=== PATIENT | female | born 1955 | race Caucasian/White ===

== ENCOUNTER 2017-06-20 16:25 | Emergency (ER) | payer OTHER ==
[~2017-06-20] VITALS: Ht 144.8 cm; Wt 62.0 kg
[~2017-06-20 16:25] MED LIST: ATV/1 PO; LAMO100T PO; ZIPR1CAP4 PO
[2017-06-20 16:30] VITALS: TEMP 36.6; Ht 144.8 cm; Wt 62.0 kg
--- NOTE | 2017-06-20 17:23 | DIAGNOSTIC IMAGING REPORT ---
CHEST ONE VIEW PORTABLE HISTORY: 61 years-old Female EVALUATE ALTERED MENTAL STATUS/WEAKNESS acute altered mental status with weakness COMPARISON: None available TECHNIQUE: Portable upright AP view of the chest FINDINGS: Cardiomediastinal and hilar silhouettes are within normal limits. There is no pneumothorax, pleural effusion, focal airspace consolidation or overt pulmonary edema. Bones of the chest are grossly intact. IMPRESSION: No acute cardiopulmonary process. The above report was generated using voice recognition software. It may contain grammatical, syntax or spelling errors. Electronically signed by: Rafal Livingston M.D. 06/20/2017 5:21 PM Dictated Date/Time: 06/20/2017 5:21 PM
--- NOTE | 2017-06-20 17:40 | EMERGENCY ROOM VISIT NOTE ---
History Report prepared by Lexi: Toby Boles Under the Supervision of: Dr. Horace Doyle M.D. First contact with patient: 16:53 Chief Complaint: CHEST PAIN Stated Complaint: SOB, CHEST PAIN, TINGLING FINGERS, BP 175/125 History of Present Illness The patient is a 61 year old female who presents to the Emergency Room with complaints of persistent hypertension beginning today. The patient states that she saw her PCP for a check up just prior to arrival and her blood pressure was found to be 175/110. She notes that she had just gotten a back massage just before this, and feels that it may have raised her blood pressure. She states that her blood pressure was completely normal yesterday. The patient also notes that she recently had blood work which revealed a calcium of 10.4. She currently complains of bilateral hand tinging, chest "tightness", SOB, fatigue, body aches, difficulty concentrating, and increased urinary frequency. Her finger tingling has been present for three months. The remainder of her symptoms began within the last few weeks. The patient states that she frequently has panic attacks. She states that she has been under a lot of stress , and has been very stressed for the past 20 years. She believes her symptoms may be related to problems with her parathyroid hormone levels. Source of History: patient Onset: today Symptom Intensity: 175/110 Quality: other (hypertension) Timing: other (persistent) Associated Symptoms: + chest pain ("tightness" ), + SOB, + urinary symptoms (increased frequency), + fatigue Note: Additional symptoms: bilateral hand tingling, body aches, and difficulty concentrating. Review of Systems See HPI for pertinent positives & negatives. A total of 10 systems reviewed and were otherwise negative. Past Medical & Surgical Medical Problems: (1) Anxiety (2) Bipolar 1 disorder (3) Depression (4) Osteopenia Surgical Problems: (1) History of section (2) History of tonsillectomy (3) History of wisdom tooth extraction Family History No pertinent family history stated. Social History Smoking Status: Current Every Day Smoker Housing Status: lives with family Current/Historical Medications Scheduled Cholecalciferol (Vitamin D3), 1 TAB PO DAILY Folic Acid (Folvite), 1 TAB PO DAILY Hydroxyzine Pamoate (Vistaril), 1 CAP PO BID Lamotrigine (Lamictal), 150 MG PO HS Multivitamin (Multivitamin), 1 TAB PO DAILY Ziprasidone Hcl (Geodon), 40 MG PO BID Ziprasidone Hcl (Geodon), 1 CAP PO HS Miscellaneous Medications Clonazepam (Klonopin), 1.5 MG PO Ibuprofen (Advil), 200 MG PO Magnesium Oxide (Mag-Ox), 400 MG PO Vitamin E (Topical) (Vitamin E) Allergies Coded Allergies: No Known Allergies (Unverified , 06/20/17) Physical Exam Vital Signs Date Time Temp Pulse Resp B/P (MAP) Pulse Ox O2 Delivery O2 Flow Rate FiO2 06/20/17 19:03 60 20 163/82 96 06/20/17 18:32 61 16 144/77 98 Room Air 06/20/17 17:23 64 06/20/17 17:07 Room Air 06/20/17 17:07 Room Air 06/20/17 16:34 97 Room Air 06/20/17 16:30 36.6 62 20 146/95 97 Room Air Physical Exam GENERAL: Patient is in no acute distress. Anxious. HEENT: No acute trauma, normocephalic atraumatic, mucous membranes moist, no nasal congestion, no scleral icterus. NECK: No stridor, no adenopathy, no meningismus, trachea is midline. LUNGS: Clear to auscultation bilaterally, no wheeze, no rhonchi, breath sounds equal. HEART: Without murmurs gallops or rubs, regular rate and rhythm. ABDOMEN: Soft, nontender, bowel sounds positive, no hernias, no peritonitis. EXTREMITIES: No cyanosis or edema, full range of motion of all the joints without pain or difficulty, no signs for acute trauma. Strong distal radial pulses bilaterally. NEUROLOGIC: Oriented x 3, no acute motor or sensory deficits, no focal weakness. SKIN: No rash, no jaundice, no diaphoresis. Medical Decision & Procedures ER Provider Diagnostic Interpretation: X-ray results as stated below per interpretation by me and the radiologist: CHEST ONE VIEW PORTABLE FINDINGS: Cardiomediastinal and hilar silhouettes are within normal limits. There is no pneumothorax, pleural effusion, focal airspace consolidation or overt pulmonary edema. Bones of the chest are grossly intact. IMPRESSION: No acute cardiopulmonary process. The above report was generated using voice recognition software. It may contain grammatical, syntax or spelling errors. Electronically signed by: Rafal Livingston M.D. 06/20/2017 5:21 PM Laboratory Results 06/20/17 17:44 Red Blood Count 4.33, Mean Corpuscular Volume 88.7, Mean Corpuscular Hemoglobin 31.4, Mean Corpuscular Hemoglobin Concent 35.4, Mean Platelet Volume 10.5, Neutrophils (%) (Auto) 57.0, Lymphocytes (%) (Auto) 33.6, Monocytes (%) (Auto) 6.4, Eosinophils (%) (Auto) 2.6, Basophils (%) (Auto) 0.3, Neutrophils # (Auto) 5.80, Lymphocytes # (Auto) 3.42, Monocytes # (Auto) 0.65, Eosinophils # (Auto) 0.26, Basophils # (Auto) 0.03 06/20/17 17:44 Test 06/20/17 17:39 06/20/17 17:44 Urine Color YELLOW Urine Appearance CLEAR (CLEAR) Urine pH 5.0 (4.5-7.5) Urine Specific [place] 1.013 (1.000-1.030) Urine Protein NEG (NEG) Urine Glucose (UA) NEG (NEG) Urine Ketones NEG (NEG) Urine Occult Blood NEG (NEG) Urine Nitrite NEG (NEG) Urine Bilirubin NEG (NEG) Urine Urobilinogen NEG (NEG) Urine Leukocyte Esterase LARGE (NEG) Urine WBC (Auto) 10-30 /hpf (0-5) Urine RBC (Auto) 0-4 /hpf (0-4) Urine Hyaline Casts (Auto) 0 /lpf (0-5) Urine Epithelial Cells (Auto) 20-30 /lpf (0-5) Urine Bacteria (Auto) NEG (NEG) White Blood Count 10.17 K/uL (4.8-10.8) Red Blood Count 4.33 M/uL (4.2-5.4) Hemoglobin 13.6 g/dL (12.0-16.0) Hematocrit 38.4 % (37-47) Mean Corpuscular Volume 88.7 fL (80-100) Mean Corpuscular Hemoglobin 31.4 pg (25-34) Mean Corpuscular Hemoglobin Concent 35.4 g/dl (32-36) Platelet Count 312 K/uL (130-400) Mean Platelet Volume 10.5 fL (7.4-10.4) Neutrophils (%) (Auto) 57.0 % Lymphocytes (%) (Auto) 33.6 % Monocytes (%) (Auto) 6.4 % Eosinophils (%) (Auto) 2.6 % Basophils (%) (Auto) 0.3 % Neutrophils # (Auto) 5.80 K/uL (1.4-6.5) Lymphocytes # (Auto) 3.42 K/uL (1.2-3.4) Monocytes # (Auto) 0.65 K/uL (0.11-0.59) Eosinophils # (Auto) 0.26 K/uL (0-0.5) Basophils # (Auto) 0.03 K/uL (0-0.2) RDW Standard Deviation 39.7 fL (36.4-46.3) RDW Coefficient of Variation 12.4 % (11.5-14.5) Immature Granulocyte % (Auto) 0.1 % Immature Granulocyte # (Auto) 0.01 K/uL (0.00-0.02) Anion Gap 7.0 mmol/L (3-11) Est Creatinine Clear Calc Drug Dose 57.3 ml/min Estimated GFR () 94.3 Estimated GFR (Non- 81.4 BUN/Creatinine Ratio 16.7 (10-20) Calcium Level 9.4 mg/dl (8.5-10.1) Magnesium Level 2.4 mg/dl (1.8-2.4) Total Bilirubin 0.3 mg/dl (0.2-1) Aspartate Amino Transf (AST/SGOT) 15 U/L (15-37) Alanine Aminotransferase (ALT/SGPT) 22 U/L (12-78) Alkaline Phosphatase 93 U/L (45-117) Troponin I < 0.015 ng/ml (0-0.045) Total Protein 8.1 gm/dl (6.4-8.2) Albumin 4.2 gm/dl (3.4-5.0) Globulin 3.9 gm/dl (2.5-4.0) Albumin/Globulin Ratio 1.1 (0.9-2) 25-Hydroxy Vitamin D Total 9.7 ng/ml (30-100) Thyroid Stimulating Hormone (TSH) 1.180 uIu/ml (0.300-4.500) Free Thyroxine 0.98 ng/dl (0.80-1.60) Parathyroid Hormone (Intact) 38.7 pg/mL (11.1-79.5) Laboratory results reviewed by me. ECG Indication: chest pain Rate (beats per minute): 58 Rhythm: sinus bradycardia Findings: no acute ischemic change, no ectopy ED Course 1653: The patient was evaluated in room C5. A complete history and physical exam was performed. 1849: Reevaluated the patient. She notes that her Klonopin dosage was decreased three days ago. She also notes that she had a phone call with her daughter today that upset her. Discussed results and discharge instructions: she verbalized understanding and agreement. The patient is ready for discharge. Medical Decision The patient is a 61 year old female who presents to the ED with complaints of hypertension. Differential diagnoses considered include anxiety, hypertension, thyroid disorder, parathyroid disorder, electrolyte imbalance, anemia, UTI, PA, and dysrhythmia. There is no leukocytosis or concerning anemia. No significant electrolyte abnormality, kidney failure or hepatitis. The patient appears to be in a euthyroid state. Parathyroid hormone testing is within the normal range. Urinalysis does not show infection or significant hematuria. EKG shows sinus bradycardia, no acute ischemia. Cardiac enzyme testing 1 is not consistent with acute cardiac injury. Vitamin D level which was a test that was requested by the patient, was slightly low. Chest film does not show mediastinal widening , pneumonia or pneumothorax. The patient presents with a high blood pressure that was noted on an office visit. She is very worked up and anxious. She states that she is weaning off of Klonopin, she had not mentioned this during my initial evaluation. She also had a stressful conversation today with her daughter. The patient was reassured by her testing. She was told to follow with her doctors office for some repeat blood pressure checks. I see no reason to start blood pressure medication today. She was discharged home in stable condition. Medication Reconcilliation Current Medication List: was personally reviewed by me Blood Pressure Screening Patient's blood pressure: Elevated blood pressure Blood pressure disposition: Elevated BP felt to be situational Impression Primary Impression: Hypertension Additional Impressions: Left sided chest pain Numbness of upper extremity Anxiety Scribe Attestation The scribe's documentation has been prepared under my direction and personally reviewed by me in its entirety. I confirm that the note above accurately reflects all work, treatment, procedures, and medical decision making performed by me. Departure Information Dispostion Home / Self-Care Referrals Verena Strong PA-C (PCP) Forms Call Back Authorization, HOME CARE DOCUMENTATION FORM, IMPORTANT VISIT INFORMATION Patient Instructions My [facility] Additional Instructions all lab testing was ok follow with deborah ellington for your a recheck and blood pressure recheck return if worsening Problem Qualifiers
[2017-06-20] MEDS ORDERED: CHOL1000 PO (17:41)
[2017-06-20] MEDS ORDERED: CLON1TAB3 PO (17:41)
[2017-06-20] MEDS ORDERED: MAGN400T6 PO (17:41)
[2017-06-20] MEDS ORDERED: VITA1CRE (17:41)
[2017-06-20] MEDS ORDERED: FOLI1TAB7 PO (17:41)
[2017-06-20] MEDS ORDERED: GDN/80 PO (17:41)
[2017-06-20] MEDS ORDERED: MULT-506 PO (17:41)
[2017-06-20] MEDS ORDERED: HYDR25CA PO (17:41)
[2017-06-20] MEDS ORDERED: IBUP-1050 PO (17:41)
[2017-06-20 17:53] LABS: BASO % 0.3 %; BASO ABS # 0.03 K/uL (0-0.2); COMPLETE YES; EOS % 2.6 %; HEMATOCRIT 38.4 % (37-47); IG% 0.1 %; LYMPH % 33.6 %; LYMPH ABS # 3.42 K/uL (1.2-3.4); MEAN CELL VOLUME 88.7 fL (80-100); MEAN CORPUSCULAR HEMOGLOBIN 31.4 pg (25-34); MEAN CORPUSCULAR HGB CONC 35.4 g/dl (32-36); MEAN PLATELET VOLUME 10.5 fL (7.4-10.4); MONO % 6.4 %; PLATELET COUNT 312 K/uL (130-400); RED BLOOD COUNT 4.33 M/uL (4.2-5.4); WHITE BLOOD COUNT 10.17 K/uL (4.8-10.8)
[2017-06-20 18:00] LABS: URINE APPEARANCE CLEAR (CLEAR); URINE BILIRUBIN NEG (NEG); URINE COLOR YELLOW; URINE EPITHELIAL CELL AUTO 20-30 /lpf (0-5); URINE NITRITE NEG (NEG); URINE SPECIFIC GRAVITY 1.013 (1.000-1.030); UROBILINOGEN NEG (NEG); ZZUR CULT IF INDIC CLEAN CATCH YES
[2017-06-20 18:10] LABS: MANUAL MICROSCOPIC REQUIRED? NO; REVIEW REQ? NO
[2017-06-20 18:16] LABS: ALT/SGPT 22 U/L (12-78); AST/SGOT 15 U/L (15-37); BLOOD UREA NITROGEN 13 mg/dl (7-18); BUN/CREATININE RATIO 16.7 (10-20); CALCIUM 9.4 mg/dl (8.5-10.1); CARBON DIOXIDE 24 mmol/L (21-32); CHLORIDE 108 mmol/L (98-107); CREATININE 0.79 mg/dl (0.60-1.20); GLUCOSE 99 mg/dl (70-99); MAGNESIUM 2.4 mg/dl (1.8-2.4); POTASSIUM 3.6 mmol/L (3.5-5.1); SODIUM 139 mmol/L (136-145)
[2017-06-20 18:27] LABS: ALB/GLOB RATIO 1.1 (0.9-2); ALKALINE PHOSPHATASE 93 U/L (45-117)
[2017-06-20 19:03] VITALS: BP 163/82; PULSE 60; O2SAT 96
== END 2017-06-20 19:05 | disposition home or self-care (01) ==
LOC: C.EDB 16:26 → C.EDC 19:05
DX: I10 Essential (primary) hypertension (principal); R07.9 Chest pain, unspecified; R20.0 Anesthesia of skin; F41.9 Anxiety disorder, unspecified; F31.9 Bipolar disorder, unspecified; F32.9 Major depressive disorder, single episode, unspecified; M85.80 Other specified disorders of bone density and structure, unspecified site; F17.200 Nicotine dependence, unspecified, uncomplicated

== ENCOUNTER → 2017-11-20 | Outpatient (CLI) | payer OTHER ==
[~2017-11-20] MED LIST changes: -ATV/1 PO; +CHOL1000 PO; +CLON1TAB3 PO; +FOLI1TAB8 PO; +GDN/80 PO; +HYDR25CA PO; +IBUP-1050 PO; +MAGN400T6 PO; +MULT-506 PO; +VITA1CRE
--- NOTE | 2017-11-28 10:00 | PULMONARY FUNCTION TEST ---
Spirometry shows a forced vital capacity and FEV1 much higher than normal. There is a normal FEV1/FVC ratio. Study is within normal limits. The patient's height is listed as 4 feet 9. If this is incorrect, it would affect the predicted values. I advise clinical correlation.
== END | disposition home or self-care (01) ==
LOC: C.RC 09:00
PROVIDERS: ATTEND Physician Assistant
DX: R06.02 Shortness of breath (principal); R07.89 Other chest pain

== ENCOUNTER → 2017-12-27 | Outpatient (CLI) | payer OTHER ==
[~2017-12-27] MED LIST changes: -ZIPR1CAP4 PO; +ZIPR40CA21 PO
== END | disposition home or self-care (01) ==
LOC: C.MAMM 14:15
PROVIDERS: ATTEND Physician Assistant
DX: M81.0 Age-related osteoporosis without current pathological fracture (principal); E55.9 Vitamin D deficiency, unspecified

== ENCOUNTER → 2018-03-29 | Outpatient (CLI) | payer OTHER ==
[~2018-03-29] MED LIST changes: +CLON1TAB10 PO; -CLON1TAB3 PO
--- NOTE | 2018-03-29 11:26 | DIAGNOSTIC IMAGING REPORT ---
ABDOMEN COMPLETE (US) HISTORY: Pain. Nausea. NAUSEA,PRANDIAL UPPER QUAD PAIN. COMPARISON: None. FINDINGS: Pancreas: The pancreas demonstrates a normal echotexture. Liver: Unremarkable. Gallbladder: No gallbladder wall thickening. No gallstones. CBD: 5 mm Kidneys: No hydronephrosis. Spleen: Normal in size. Aorta: Normal in caliber. IVC: Patent. IMPRESSION: No significant abnormality identified within the within the abdomen. The above report was generated using voice recognition software. It may contain grammatical, syntax or spelling errors. Electronically signed by: Jonah Bangura M.D. 03/29/2018 11:25 AM Dictated Date/Time: 03/29/2018 11:24 AM
== END | disposition home or self-care (01) ==
LOC: C.ULTRBC 10:02
PROVIDERS: ATTEND Physician Assistant
DX: R11.0 Nausea (principal); R10.11 Right upper quadrant pain

== ENCOUNTER 2020-01-09 14:07 | Observation (INO) ==
--- NOTE | 2020-01-09 14:33 | Emergency Department Note ---
Impression & Plan Exertional chest pain, Hypertension, Intermittent headache ED Provider Note CHIEF COMPLAINT: Chest pain, headaches, high blood pressure HISTORY OF PRESENTING ILLNESS: This is a 64-year-old female with past medical history significant for hypertension, hyperlipidemia and IBS, who presents to the emergency department by private vehicle with complaint of chest pain and headaches that have been ongoing for at least the last 2 weeks. She states the headaches have been intermittent and seem to be worse when her blood pressure is high. She states that she has had constant chest pain for the past 2 weeks that is in the middle of her chest and radiates into her back between her shoulder blades, came on gradually and is worse with exertion, she currently rates the pain as 8/10. She states her headache is completely gone right now. She notes that she was prescribed metoprolol to treat her high blood pressure in October 2017, she states she took this for few months, but then took herself off because she did not think it was going to do any good. She noticed her blood pressure was high about a week ago and started taking her blood pressure medicine again, she did take a dose this morning. She states she comes in today because she felt worse than usual, woke up feeling short of breath and her chest pain was worse, she thought it was her reflux so she took Protonix. She noticed that her blood pressure was high and she was also dizzy and just not feeling well. She spoke with her daughter and then called her PCPs office who told her to come to the ER. She denies any cough, URI symptoms, fevers or chills, abdominal pain, nausea/vomiting or diarrhea, urinary symptoms, or unusual rash. She denies any sick contacts or exposures concerning for COVID-19. REVIEW OF SYSTEMS: A complete 10 point review of systems was reviewed with the patient with pertinent positives and negatives as per history of present illness. All else were negative. PAST MEDICAL HISTORY: Hypertension, hyperlipidemia, IBS SOCIAL HISTORY: Lives at home alone, she denies tobacco use ALLERGIES: No known allergies PHYSICAL EXAM: CONSTITUTIONAL: Pleasant and cooperative. Nontoxic-appearing and in no acute distress. Well appearing and well nourished. HEENT: Normocephalic, atraumatic. NECK: Supple, full active range of motion without discomfort. No cervical adenopathy. RESPIRATORY: Clear to auscultation bilaterally with no wheezing, crackles, rhonchi or stridor. Equal expansion bilaterally. CARDIOVASCULAR: Regular rate and rhythm with no murmurs, rubs or gallops. Normal peripheral perfusion, 2+ distal pulses in all 4 extremities. No pitting edema. GASTROINTESTINAL: Soft, nontender, nondistended. No palpable masses or HSM. Bowel sounds present in all quadrants. No CVA tenderness bilaterally. MUSCULOSKELETAL: No calf swelling or tenderness bilaterally. Negative Homans sign bilaterally. Full range of motion of all joints without discomfort. INTEGUMENTARY: No rash or other significant dermatologic conditions noted. NEUROLOGIC: Alert and oriented X 4 with normal affect. Normal strength and sensation in all 4 extremities. No focal neurologic deficits noted. Normal speech. ED COURSE AND MEDICAL DECISION MAKING: CC: Patient presenting with complaint of chest pain, headache, high blood pressure DIFFERENTIAL DIAGNOSIS: Includes, but not limited to acute coronary syndrome, pulmonary embolism, aortic dissection, pneumothorax, pericarditis, anxiety, musculoskeletal pain, GERD, costochondritis, pneumonia, acute intracranial bleed, encephalopathy, mass or mass effect, hypertensive urgency, among others. INTERPRETATION OF LABS: No leukocytosis, no anemia, normal platelets, no significant electrolyte abnormalities, normal renal function, normal liver enzymes and lipase. Negative troponin. Negative d-dimer. Coagulation factors within normal limits. IMAGING: XR chest 1V portable CLINICAL HISTORY: Chest pain. COMPARISON STUDY: No previous studies for comparison. FINDINGS: Lung volumes are normal. Lungs are clear. There is no pneumothorax or pleural effusion. Cardiac size is normal. Mediastinal contours are normal. There is no evidence for pulmonary edema. IMPRESSION: No acute cardiopulmonary findings. ----- CT head/brain wo con CLINICAL HISTORY: 64 years-old Female with headache. Acute headache TECHNIQUE: Multiple axial CT images of the head were obtained without contrast. A dose lowering technique was utilized adhering to the principles of ALARA. COMPARISON: None. FINDINGS: No acute intracranial hemorrhage, midline shift, intracranial mass, hydrocephalus, territorial ischemia or abnormal extra-axial collection. Age- related involutional changes, notably with bifrontal cerebral atrophy. The calvarium is intact. The paranasal sinuses, mastoid air cells, and middle ear cavities are clear. IMPRESSION: No acute intracranial abnormality. ----- CT angio chest PE protocol CT DOSE: 874.65 mGy.cm HISTORY: 64 years-old Female with chest pain, eval dissection and PE. Acute chest pain with shortness of breath TECHNIQUE: Multiple CTA images of the chest were obtained after the intravenous administration of 117 ml Optiray 320. Coronal and sagittal MIPS were obtained from the axial data set and were submitted for review. All measurements were obtained according to NASCET criteria. A dose lowering technique was utilized adhering to the principles of ALARA. COMPARISON: Chest radiograph of same day. FINDINGS: CTA: Heart is upper limits of normal in size. No pericardial effusion. Reflux of contrast into the IVC and hepatic veins. Bovine morphology of the thoracic aortic arch. There is patency of the imaged great vessels. The pulmonary arterial tree is opacified to the level of the proximal subsegmental branches and demonstrates no filling defects to suggest pulmonary thromboembolic disease. CT CHEST: Unremarkable thyroid. No pathologically enlarged lymph nodes by CT size criteria. No pneumothorax, pleural effusion, airspace consolidation or overt pulmonary edema. The inferior lung bases are not imaged in or outside the [id number]. Minimal subsegmental bibasilar atelectasis. There are a few subtle subsegmental groundglass opacities noted within the posterior segment of the right upper lobe. No lobar airspace consolidation. No suspicious pulmonary nodule or mass. The central airways are patent with mild tracheal secretions. There is no acute process of the imaged upper abdomen. Soft tissues and breast parenchyma appear unremarkable. Degenerative changes are noted involving the shoulders and spine. There is suggestion of a healed remote fracture involving the anterior right fifth and sixth ribs. No acute sternal fracture. Multilevel advanced disc space narrowing with spondylitic spurring and facet arthrosis. IMPRESSION: 1. No acute aortic pathology or evidence of pulmonary thromboembolic disease. 2. Minimal subsegmental groundglass opacities of the posterior segment right upper lobe are suggestive of a subtle infectious or inflammatory pneumonitis. 3. Nondisplaced fractures of the anterior right fifth and sixth ribs appear to be subacute or chronic. No acute fracture identified. EK01/09/2020 at 12:52 PM: Shows sinus tachycardia with a rate of 113 bpm, normal intervals, nonspecific T wave changes in the inferior leads, no ectopy by my interpretation. No previous EKG available for comparison. 01/09/2020 at 3:29 PM: Shows sinus tachycardia with a rate of 110 bpm, appears re latively unchanged from previous EKG earlier today. MEDICATION RECONCILIATION: I attest that I have personally reviewed the patient's current medication list. INITIAL VITAL SIGNS REVIEW: I reviewed the patient's initial vital signs and interpret them as follows: T: Afebrile; BP: Hypertensive; HR: Within normal limits; RR: Within normal limits; Pulse Ox: Within normal limits on room air. Blood pressure screening: The patient was found to have an elevated blood pressure and was referred to the inpatient team for further management. MDM SUMMARY: Patient was evaluated at bedside, history and physical exam performed. Patient is alert and oriented, in no acute distress, resting calmly in stretcher. She is afebrile and nontoxic-appearing. She appears well-hydrated. She complains of midsternal chest pain that radiates through to her back and rates the pain an 8/10. She has not tried anything for the pain. Lungs are clear throughout. No peripheral edema. Pulses are equal in all 4 extremities. Cardiac monitoring: An order was placed for continuous cardiac monitoring. The monitor shows a rate of 72 bpm with normal sinus rhythm. An EKG was reviewed at bedside, noting normal sinus rhythm with no acute ischemic changes. Heart score of 4, placing her at moderate risk. Wells criteria is low risk for PE. Orders were placed at bedside for labs, troponin and d-dimer, chest x-ray, CT of the head and CTA of the chest to evaluate for chest pain. Nitropaste ordered to treat chest pain. Patient discussed with Dr. Doyle, who agrees with my assessment, plan, and disposition. Nursing staff notified me that when they went to do the Nitropaste, the patient states her pain is currently 0. Will hold off on the Nitropaste for now. Labs and imaging reviewed as above, labs are fairly unremarkable, no leukocytosis or anemia, no electrolyte abnormalities, normal renal function. Troponin and d-dimer are negative. Chest x-ray is clear. CTA of the chest is negative for PE or dissection. Minimal groundglass opacities at the right upper lobe noted. The patient has not had a cough, there have not been any fevers and there is no leukocytosis to suggest infectious etiology. On reassessment, the patient is now complaining of chest pain again. Nursing staff was instructed to place the Nitropaste. Given the patient's persistent chest pain, risk factors, and poorly controlled blood pressure, I did feel that she would benefit from a hospital admission for further work-up of the chest pain and to optimize management of her hypertension. [facility] to evaluate the patient for admission. Will defer to the inpatient team regarding treatment of groundglass opacities noted on CTA. Patient reassessed multiple times throughout ED stay, she has remained hemodynamically stable and her chest pain is improving with the Nitropaste. She was updated on all results and plan for admission, all questions were answered at this time, and the patient was agreeable to this plan. Patient was stable at time of admission. The chart was completed utilizing [employer] Speech voice recognition software. Grammatical errors, random word insertions, pronoun errors, and incomplete sentences are an occasional consequence of this system due to software limitations, ambient noise, and hardware issues. Any formal questions or concerns about the content, text, or information contained within the body of this dictation should be directly addressed to the nurse practitioner for clarification. Past Med/Surg History Social History (System 01/09/20 @ 15:48 by Kelley Stanton) Preferred Language: Eritre[place] marital status: Current Living Situation: Alone current occupational status: retired Feels Safe at Home: Yes Smoking Status: Never smoker Hx Alcohol Use: No Allergies Allergies Allergy/AdvReac Type Severity Reaction Status Date / Time No Known Allergies Allergy Unverified 01/09/20 16:14 Home Meds Home Medications Medication Instructions Recorded Confirmed diazepam [Valium] 10 mg PO BID PRN 11/04/18 01/09/20 lamotrigine [Lamictal] 100 mg PO BID 11/04/18 01/09/20 pantoprazole [Protonix] 40 mg PO QAM 11/04/18 01/09/20 paroxetine HCl [Paxil] 10 mg PO QAM 11/04/18 01/09/20 ziprasidone HCl [Geodon] 40 mg PO HS 11/04/18 01/09/20 ziprasidone HCl [Geodon] 80 mg PO QAM 11/04/18 01/09/20 atorvastatin [Lipitor] 20 mg PO HS 01/09/20 01/09/20 metoprolol succinate 12.5 mg PO QAM 01/09/20 01/09/20 Results & Data (ED) Vital Signs Vital Signs - 24 hr 01/09/20 14:09 01/09/20 14:24 01/09/20 15:23 Temperature 36.3 C L Temperature Source Oral Pulse Rate 70 65 Pulse Rate from SpO2 Sensor Respiratory Rate 16 15 Respiratory Effort / Characteristics Non-Labored Respiratory Depth Normal Blood Pressure 131/81 139/79 Blood Pressure Mean 97 80 Pulse Oximetry 96 97 Oxygen Delivery Method Room Air Room Air Room Air Sepsis Recent Fever Within 48 Hours No Sepsis New/Unexplained Change in Mental Status No Sepsis Action Taken by Nursing No Action Required 01/09/20 15:30 01/09/20 15:37 Temperature Temperature Source Pulse Rate 64 63 Pulse Rate from SpO2 Sensor 62 Respiratory Rate 22 Respiratory Effort / Characteristics Respiratory Depth Blood Pressure 124/82 129/88 Blood Pressure Mean 91 111 Pulse Oximetry 97 97 Oxygen Delivery Method Room Air Room Air Sepsis Recent Fever Within 48 Hours Sepsis New/Unexplained Change in Mental Status Sepsis Action Taken by Nursing Laboratory Data Result diagrams: 01/09/20 14:20 01/09/20 14:20 Lab Results 01/09/20 01/09/20 01/09/20 Range/Units 14:20 14:20 14:20 WBC 9.38 (4.8-10.8) K/uL RBC 4.33 (4.2-5.4) M/uL Hgb 13.6 (12.0-16.0) g/dL Hct 39.0 (37-47) % MCV 90.1 (80-100) fL MCH 31.4 (25-34) pg MCHC 34.9 (32-36) g/dL RDW Std Deviation 40.3 (36.4-46.3) fL RDW Coeff of Shanna 12.3 (11.5-14.5) % Plt Count 345 (130-400) K/uL MPV 10.9 H (7.4-10.4) fL Immature Gran % (Auto) 0.2 % Neut % (Auto) 72.4 % Lymph % (Auto) 20.9 % Garrard % (Auto) 5.3 % Eos % (Auto) 0.9 % Baso % (Auto) 0.3 % Immature Gran # (Auto) 0.02 (0.00-0.02) K/uL Neut # (Auto) 6.79 H (1.4-6.5) K/uL Lymph # (Auto) 1.96 (1.2-3.4) K/uL Garrard # (Auto) 0.50 (0.11-0.59) K/uL Eos # (Auto) 0.08 (0-0.5) K/uL Baso # (Auto) 0.03 (0-0.2) K/uL PT 10.3 (9.0-12.0) Seconds INR 1.0 (0.9-1.1) APTT 25.1 (21.0-31.0) Seconds PTT Ratio 0.9 D-Dimer 450 (0-500) ug/L FEU Sodium 142 (136-145) mmol/L Potassium 3.8 (3.5-5.1) mmol/L Chloride 106 (98-107) mmol/L Carbon Dioxide 26 (21-32) mmol/L Anion Gap 10.0 (3-11) BUN 14 (7-18) mg/dl Creatinine 0.87 (0.6-1.2) mg/dl Est Cr Clr Drug Dosing Not Reportable Est GFR ( Amer) 82.2 Est GFR (Non-Af Amer) 70.9 BUN/Creatinine Ratio 16.0 (10-20) Glucose 113 H (70-99) mg/dl Calcium 9.3 (8.5-10.1) mg/dl Total Bilirubin 0.4 (0.2-1) mg/dl AST 15 (15-37) U/L ALT 30 (12-78) U/L Alkaline Phosphatase 104 (45-117) U/L Troponin I < 0.015 (0-0.045) ng/ml Total Protein 7.8 (6.4-8.2) gm/dl Albumin 4.2 (3.4-5.0) gm/dl Globulin 3.6 (2.5-4.0) gm/dl Albumin/Globulin Ratio 1.2 (0.9-2) Lipase 152 (73-393) U/L Administered Medications Ioversol (Optiray 320 125ml) 117 ml IV ONCE PRN PRN Reason: Interaction Checking Stop: 01/13/20 15:42 Last Admin: 01/09/20 15:44 Dose: 117 ml Documented by: [id number] Discontinued Medications Nitroglycerin (Nitro-Bid 2%) 0.5 inch EXT NOW STA Stop: 01/09/20 14:47 Last Admin: 01/09/20 16:27 Dose: 0.5 inch Documented by: [id number] Discharge Plan Visit Data Chief Complaint: Chest Pain Stated Complaint: CHEST PAIN, TIGHTNESS, SOB, BACK PAIN ED Provider: Horace Doyle ED Midlevel Provider: Michelle Foley Discharge Problem: Exertional chest pain, Hypertension, Intermittent headache Forms Stand Alone Forms: [facility] Prescriptions Prescriptions: No Action ziprasidone HCl [Geodon] 80 mg Capsule 80 mg PO QAM RF: 0 paroxetine HCl [Paxil] 10 mg tablet 10 mg PO QAM RF: 0 pantoprazole [Protonix] 40 mg Tablet,Delayed Release (Dr/Ec) 40 mg PO QAM RF: 0 ziprasidone HCl [Geodon] 40 mg Capsule 40 mg PO HS RF: 0 diazepam [Valium] 10 mg tablet 10 mg PO BID PRN (Reason: Anxiety) RF: 0 lamotrigine [Lamictal] 100 mg tablet 100 mg PO BID RF: 0 atorvastatin [Lipitor] 20 mg Tablet 20 mg PO HS RF: 0 metoprolol succinate 25 mg tablet extended release 24 hr 12.5 mg PO QAM RF: 0 Referrals Referrals: Verena Strong PA-C [Primary Care Provider] - Discharge Problem: Hypertension Qualifiers: Hypertension type: unspecified Qualified Code(s): I10 - Essential (primary) hypertension
[2020-01-09 14:35] LABS: Basophils # (auto) 0.03 K/uL (0-0.2); Basophils % (auto) 0.3 %; Eosinophils # (auto) 0.08 K/uL (0-0.5); Eosinophils % (auto) 0.9 %; Hemoglobin 13.6 g/dL (12.0-16.0); Immature Granulocytes # (auto) 0.02 K/uL (0.00-0.02); Immature Granulocytes % (auto) 0.2 %; Lymphocytes # (auto) 1.96 K/uL (1.2-3.4); Lymphocytes % (auto) 20.9 %; Mean Corpuscular Hemoglobin 31.4 pg (25-34); Mean Corpuscular Hgb Conc 34.9 g/dL (32-36); Mean Corpuscular Volume 90.1 fL (80-100); Mean Platelet Volume 10.9 fL (7.4-10.4); Monocytes % (auto) 5.3 %; Neutrophils # (auto) 6.79 K/uL (1.4-6.5); Neutrophils % (auto) 72.4 %; Platelet Count 345 K/uL (130-400); RDW Coefficient of Variation 12.3 % (11.5-14.5); RDW Standard Deviation 40.3 fL (36.4-46.3); Red Blood Count 4.33 M/uL (4.2-5.4); White Blood Count 9.38 K/uL (4.8-10.8)
--- NOTE | 2020-01-09 14:44 | XRay Report ---
XR chest 1V portable CLINICAL HISTORY: Chest pain. COMPARISON STUDY: No previous studies for comparison. FINDINGS: Lung volumes are normal. Lungs are clear. There is no pneumothorax or pleural effusion. Car diac size is normal. Mediastinal contours are normal. There is no evidence for pulmonary edema. IMPRESSION: No acute cardiopulmonary findings. ACT 112: Negative or not required by law. Electronically signed by: Jordi Linder M.D. 01/09/2020 2:43 PM
[2020-01-09] MEDS ORDERED: NITROGLYCERIN 2% OINTMENT 30GM TUBE EXT STA (14:46)
[2020-01-09 14:53] LABS: Alanine Aminotransferase 30 U/L (12-78); Albumin Level 4.2 gm/dl (3.4-5.0); Aspartate Aminotransferase 15 U/L (15-37); Blood Urea Nitrogen 14 mg/dl (7-18); Calcium 9.3 mg/dl (8.5-10.1); Carbon Dioxide 26 mmol/L (21-32); Chloride 106 mmol/L (98-107); Est GFR (African American) 82.2; Est GFR (Non-African American) 70.9; Glucose 113 mg/dl (70-99); Lipase 152 U/L (73-393); Potassium 3.8 mmol/L (3.5-5.1); Sodium 142 mmol/L (136-145)
[2020-01-09 14:58] LABS: Albumin Globulin Ratio 1.2 (0.9-2); Alkaline Phosphatase 104 U/L (45-117); Bilirubin,Total 0.4 mg/dl (0.2-1); Globulin 3.6 gm/dl (2.5-4.0); Total Protein 7.8 gm/dl (6.4-8.2); Troponin I < 0.015 ng/ml (0-0.045)
[2020-01-09 15:28] LABS: D Dimer 450 ug/L FEU (0-500); Partial Thromboplastin Ratio 0.9; Partial Thromboplastin Time 25.1 Seconds (21.0-31.0); Prothrombin Time 10.3 Seconds (9.0-12.0)
[2020-01-09] MEDS ORDERED: OPTIRAY 320 125ml IV PRN (15:43)
--- NOTE | 2020-01-09 15:52 | CT Scan Report ---
CT head/brain wo con CLINICAL HISTORY: 64 years-old Female with headache. Acute headache TECHNIQUE: Multiple axial CT images of the head were obtained without contrast. A dose lowering tech nique was utilized adhering to the principles of ALARA. COMPARISON: None. FINDINGS: No acute intracranial hemorrhage, midline shift, intracranial mass, hydrocephalus, territorial ischem ia or abnormal extra-axial collection. Age-related involutional changes, notably with bifrontal cereb ral atrophy. The calvarium is intact. The paranasal sinuses, mastoid air cells, and middle ear cavities are clear . IMPRESSION: No acute intracranial abnormality. ACT 112: Negative or not required by law. The above report was generated using voice recognition software. It may contain grammatical, syntax o r spelling errors. Electronically signed by: Rafal Livingston M.D. 01/09/2020 3:51 PM
--- NOTE | 2020-01-09 16:01 | CT Scan Report ---
CT angio chest PE protocol CT DOSE: 874.65 mGy.cm HISTORY: 64 years-old Female with chest pain, eval dissection and PE. Acute chest pain with shortne ss of breath TECHNIQUE: Multiple CTA images of the chest were obtained after the intravenous administration of 117 ml Optiray 320. Coronal and sagittal MIPS were obtained from the axial data set and were submitted for review. All measurements were obtained according to NASCET criteria. A dose lowering technique w as utilized adhering to the principles of ALARA. COMPARISON: Chest radiograph of same day. FINDINGS: CTA: Heart is upper limits of normal in size. No pericardial effusion. Reflux of contrast into the IVC and hepatic veins. Bovine morphology of the thoracic aortic arch. There is patency of the imaged great v essels. The pulmonary arterial tree is opacified to the level of the proximal subsegmental branches a nd demonstrates no filling defects to suggest pulmonary thromboembolic disease. CT CHEST: Unremarkable thyroid. No pathologically enlarged lymph nodes by CT size criteria. No pneumothorax, pl eural effusion, airspace consolidation or overt pulmonary edema. The inferior lung bases are not imag ed in or outside the [id number]. Minimal subsegmental bibasilar atelectasis. There are a few subtl e subsegmental groundglass opacities noted within the posterior segment of the right upper lobe. No l obar airspace consolidation. No suspicious pulmonary nodule or mass. The central airways are patent w ith mild tracheal secretions. There is no acute process of the imaged upper abdomen. Soft tissues and breast parenchyma appear unre markable. Degenerative changes are noted involving the shoulders and spine. There is suggestion of a healed remote fracture involving the anterior right fifth and sixth ribs. No acute sternal fracture. Multilevel advanced disc space narrowing with spondylitic spurring and facet arthrosis. IMPRESSION: 1. No acute aortic pathology or evidence of pulmonary thromboembolic disease. 2. Minimal subsegmental groundglass opacities of the posterior segment right upper lobe are suggestiv e of a subtle infectious or inflammatory pneumonitis. 3. Nondisplaced fractures of the anterior right fifth and sixth ribs appear to be subacute or chronic . No acute fracture identified. ACT 112: Negative or not required by law. The above report was generated using voice recognition software. It may contain grammatical, syntax o r spelling errors. Electronically signed by: Rafal Livingston M.D. 01/09/2020 4:00 PM
--- NOTE | 2020-01-09 16:39 | Emergency Department Note ---
ED Visit Note Patient was seen by our PA/AUTOMOBILE INSPECTOR. I was involved in the patient's care and did evaluate the patient myself. I was involved in the care throughout the ER stay. Patient presents with chest pain. She does have some cardiac risk factors. Further cardiac work-up in the hospital is warranted. .
--- NOTE | 2020-01-09 17:43 | History & Physical Report ---
Date of Service January 09, 2020 Assessment & Plan (1) Chest pain: - Admit to tele for observation for r/o - Trend cardiac biomarkers, initial set was negative - EKG reviewed as above - Check 2 D echo - Checking lipids and A1c with a.m. labs - If negative enzymes can consider a stress test tomorrow morning. - PT/OT consulted - CT Chest reviewed - negative for PE or dissection - Minimal subsegmental groundglass opacities of the posterior segment right upper lobe are suggestive of a subtle infectious or inflammatory pneumonitis. She denies respiratory complaints, no cough, no fever, no chills. - Checking KUB of the abd with abdominal distension, minimal tenderness with palpation in the RLQ, last BM was today per pt report (2) Hypertension: - Pt reports resuming metoprolol last Sunday - was placed on this 4 months ago but did not take the medication. Cont metoprolol succinate 12.5 mg daily - Bp elevated in 150s/90s at bedside - Likely anxiety worsening this, but can consider titrating metoprolol up if this continues. (3) Bipolar 1 disorder, depressed, partial remission: (4) ANIRUDH (generalized anxiety disorder): (5) PTSD (post-traumatic stress disorder): - Continue on lamictal 100 mg BID, Paxil 10 mg QAM, Valium 10 mg BID prn for anxiety, Geodon 80 mg QAM and 40 mg HS - Follows with Dr. Child with [facility] [place] as an outpt - Checking lipid panel as above (6) DVT prophylaxis: - teds, scds, ambulatory CODE: Full code Dispo: From home, likely to remain in the hospital x 1 day for observation History of Present Illness Primary Care Provider: Verena Strong PA-C This is a 64 yo F, who goes by "Hazel", with PMHx of HTN, HLD, PTSD, bipolar disorder, MDD, ANIRUDH, who presents with chest pain which has been waxing and waning over the last 2 weeks. Patient reports that she feels it substernally and she describes it more as a pressure, and feels it through to her back, denies any radiation up into the jaw or into her arms. She denies any palpitations or flutter, lightheadedness or dizziness. She reports frontal headaches and associated elevated blood pressure. Here in the ER the patient is watching her blood pressure readings and then reports her headaches seem to occur at the exact same time. Last Sunday, she resumed metoprolol succinate 12.5 mg QAM but had not been taking for several months, and still is reporting elevated BP at home. Along with the headaches she admits to increase in blurred vision as well as diplopia. She cannot confirm if this is a brand-new problem, as she has used glasses for many years and was planning on getting a follow-up appointment for changes in vision soon. She denies any changes in smell or taste. Patient has associated nausea with headaches and chest pressure however no vomiting. History of IBS with intermittent constipation, reports her last bowel movement was today but takes routine stool softeners/stimulant laxatives on a daily basis. She reports eating very clean but then proceeds to tell me that she will eat toast/bagels/pasta daily. She denies alcohol use. Denies smo sebastian history. She feels that she has been under more stress recently, "I am grieving more after already going through the 4 stages of grief, because of been home by myself, just walking the dog and sitting alone," reports her anxiety is worsened and that she is in a depressed phase of her bipolar disorder. 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 Allergies Allergy/AdvReac Type Severity Reaction Status Date / Time No Known Allergies Allergy Unverified 01/09/20 16:14 Home Medications Home Medications Medication Instructions Recorded Confirmed Type diazepam [Valium] 10 mg PO BID PRN 11/04/18 01/09/20 History lamotrigine [Lamictal] 100 mg PO BID 11/04/18 01/09/20 History pantoprazole [Protonix] 40 mg PO QAM 11/04/18 01/09/20 History paroxetine HCl [Paxil] 10 mg PO QAM 11/04/18 01/09/20 History ziprasidone HCl [Geodon] 40 mg PO HS 11/04/18 01/09/20 History ziprasidone HCl [Geodon] 80 mg PO QAM 11/04/18 01/09/20 History atorvastatin [Lipitor] 20 mg PO HS 01/09/20 01/09/20 History metoprolol succinate 12.5 mg PO QAM 01/09/20 01/09/20 History Past Med/Surg History Medical History (Updated 01/10/20 @ 06:52 by Sher Chow) Bipolar 1 disorder, depressed, partial remission ANIRUDH (generalized anxiety disorder) Hypertension (Acute) Psychiatric illness PTSD (post-traumatic stress disorder) Surgical History (System 01/09/20 @ 15:48 by Kelley Stanton) No significant past surgical history Family History (Updated 01/09/20 @ 17:57 by Fatou Baxter PA-C) Other Diabetes Dyslipidemia Heart disease Hypertension Social History (System 01/09/20 @ 15:48 by Kelley Stanton) Preferred Language: Czech Communication Ability: Effective Drafter Cartographic Required: No Beliefs That Will Affect Care: None marital status: Current Living Situation: Alone current occupational status: retired Other Information That Helps Us Care for You: No Feels Safe at Home: Yes Safety Concerns: Feels Safe At This Time Smoking Status: Never smoker Second Hand Exposure: Yes ; Hx Alcohol Use: Yes Alcohol type: wine Hx Substance Use: Yes substance use type: marijuana Last Used Substance: Hours (ago) Last Used Substance Other:: Morning of 01/08 Review of Systems Review of Systems: Constitutional: No fever, sweats or chills Eyes: + Blurred vision and diplopia ENT: + Headaches, normal hearing, no trouble swallowing Respiratory: No cough, sputum, dyspnea at rest or on exertion Cardiovascular: As per HPI, currently no chest pain, tightness or palpitations Abdomen: + Abdominal bloating and nausea, + IBS, intermittent constipation and diarrhea Musculoskeletal: No joint pain, calf pain, swelling Neurologic: No weakness, numbness/tingling, or balance problems Psychiatric: No anxiety or depression Skin: No rash or itch Physical Exam Physical Exam: General: awake, alert, no apparent distress, +shaved head wearing a ball, + make-up on Head: Normocephalic, atraumatic ENT: PERRL, EOMI, no pharyngeal exudate, mucous membranes moist Chest: on room air, + inspiratory and expiratory rales, no rhonchi Cardiac: Regular rate and rhythm, no MRG's, no JVD, normal peripheral pulses, good capillary refill Abdominal: NABS x 4 quadrants, soft, + distended, + tender to palpation in RLQ, no rebound, guarding Extremities: Normal inspection, no peripheral edema or erythema, calfs nontender to palpation Psych: + Depressed mood and anxious affect, + rapid speech at times Neuro: AAO x 3, strength intact bilaterally and rated 5/5, no motor deficits, speech is clear, no peripheral sensory deficits Skin: no rash or erythema Results & Data Results & Data ([facility]) Vital Signs (Past 12 Hours) Vital Signs Temp Pulse Resp BP Pulse Ox 01/09/20 15:37 63 129/88 97 01/09/20 15:30 64 22 124/82 97 01/09/20 15:23 65 15 139/79 97 01/09/20 14:09 36.3 C L 70 16 131/81 96 Diagnostic Findings XR chest 1V portable CLINICAL HISTORY: Chest pain. COMPARISON STUDY: No previous studies for comparison. FINDINGS: Lung volumes are normal. Lungs are clear. There is no pneumothorax or pleural effusion. Cardiac size is normal. Mediastinal contours are normal. There is no evidence for pulmonary edema. IMPRESSION: No acute cardiopulmonary findings. CT head/brain wo con CLINICAL HISTORY: 64 years-old Female with headache. Acute headache TECHNIQUE: Multiple axial CT images of the head were obtained without contrast. A dose lowering technique was utilized adhering to the principles of ALARA. COMPARISON: None. FINDINGS: No acute intracranial hemorrhage, midline shift, intracranial mass, hydrocephalus, territorial ischemia or abnormal extra-axial collection. Age- related involutional changes, notably with bifrontal cerebral atrophy. The calvarium is intact. The paranasal sinuses, mastoid air cells, and middle ear cavities are clear. IMPRESSION: No acute intracranial abnormality. CT angio chest PE protocol CT DOSE: 874.65 mGy.cm HISTORY: 64 years-old Female with chest pain, eval dissection and PE. Acute chest pain with shortness of breath TECHNIQUE: Multiple CTA images of the chest were obtained after the intravenous administration of 117 ml Optiray 320. Coronal and sagittal MIPS were obtained from the axial data set and were submitted for review. All measurements were obtained according to NASCET criteria. A dose lowering technique was utilized adhering to the principles of ALARA. COMPARISON: Chest radiograph of same day. FINDINGS: CTA: Heart is upper limits of normal in size. No pericardial effusion. Reflux of contrast into the IVC and hepatic veins. Bovine morphology of the thoracic aortic arch. There is patency of the imaged great vessels. The pulmonary arterial tree is opacified to the level of the proximal subsegmental branches and demonstrates no filling defects to suggest pulmonary thromboembolic disease. CT CHEST: Unremarkable thyroid. No pathologically enlarged lymph nodes by CT size criteria. No pneumothorax, pleural effusion, airspace consolidation or overt pulmonary edema. The inferior lung bases are not imaged in or outside the [id number]. Minimal subsegmental bibasilar atelectasis. There are a few subtle subsegmental groundglass opacities noted within the posterior segment of the right upper lobe. No lobar airspace consolidation. No suspicious pulmonary nodule or mass. The central airways are patent with mild tracheal secretions. There is no acute process of the imaged upper abdomen. Soft tissues and breast parenchyma appear unremarkable. Degenerative changes are noted involving the shoulders and spine. There is suggestion of a healed remote fracture involving the anterior right fifth and sixth ribs. No acute sternal fracture. Multilevel advanced disc space narrowing with spondylitic spurring and facet arthrosis. IMPRESSION: 1. No acute aortic pathology or evidence of pulmonary thromboembolic disease. 2. Minimal subsegmental groundglass opacities of the posterior segment right upper lobe are suggestive of a subtle infectious or inflammatory pneumonitis. 3. Nondisplaced fractures of the anterior right fifth and sixth ribs appear to be subacute or chronic. No acute fracture identified. ECG Additional Comments: 09-JAN-2020 14:16:55 [facility]-EDSTAT ROUTINE RETRIEVAL Normal sinus rhythm Normal ECG No previous ECGs available 25mm/s 10mm/mV 150Hz 9.0.9 12SL 241 ROSARIO: 15 Unconfirmed Vent. rate 70 BPM SD interval 152 ms QRS duration 78 ms QT/QTc 396/427 ms P-R-T axes 51 59 55 Code Status & VTE Plan Code Status Full code-discussed with the patient at bedside VTE Prophylaxis Plan VTE Prophylaxis will be ordered: No Supervising Physician Co-Signing Physician Notes Attending Admit Note & Attestation: Pt seen/examined, chart reviewed, admit care plan d/w ARTIE Baxter. I agree w/ the pardo components of her documentation. 64yo female with history of bipolar disorder, anxiety, PTSD, and GERD who presents with multiple complaints. 1 - chest tightness - usually wakes her from sleep; not exertional; no cough, no dyspnea; present for 2+ weeks or longer 2 - headaches - "like a vice around my head" - for months (dating to October around COVID outbreak) 3 - abdominal bloating for weeks 4 - worsening anxiety 5 - reflux no h/o asthma or lung disease no weight loss; good appetite PMH, PSH, allergies, meds, sochx, famhx - reviewed mother had pancreatic ca VSS, BPs mildly high gen - pleasant; mildly anxious; NAD neck - no JVD heart - RRR, s1, s2, no murmur lungs - CTA b/l abd - mild distension but NT; no HSM ext - no edema vascular - radial pulses 2+ b/l EKG - NSR, no ST changes trop negative labs acceptable CTA chest - minimal RUL infiltrate A/P: 1. chest tightness - atypical for ischemia - work-up thus far negative; serial trops; telemetry; echo in am. Check lipids am. If rest of w/u is negative consider outpatient stress test. 2. headaches - check sed rate/crp in am as screen for temporal arteritis but doubt. sound like tension headaches from anxiety. 3. abd bloating - consider outpatient CT abd/pelvis given family h/o pancreatic cancer. Start with KUB x-ray - r/o fecal stasis, etc. 4. reflux - may be causing #1 - increase PPI to BID; add carafate. 5. RUL infiltrate - uncertain etiology or significance - could this be aspiration from reflux disease? no cough, fever etc to suggest active infection. would not use abx at this time. observation status Sher Chow MD PG Care Time/CCT Total # of Minutes Spent Total Time Spent with Patient: Total time spent is greater than 50% in coordination of care (as documented) at patient's floor/unit and/or counseling patient: Coding Level of Care Code 53949 OBS Care - Level 3 Diagnoses Chest pain R07.9 Hypertension I10 Hypertension type: unspecified Bipolar 1 disorder, depressed, partial remission F31.75 ANIRUDH (generalized anxiety disorder) F41.1 PTSD (post-traumatic stress disorder) F43.10 DVT prophylaxis Z29.9 (1) Hypertension Hypertension type: unspecified Qualified Code(s): I10 - Essential (primary) hypertension
[2020-01-09] MEDS ORDERED: ONDANSETRON INJ 2 MG/ML 2 ML VIAL IV PRN (18:34)
[2020-01-09] MEDS ORDERED: diazePAM 5 MG TABLET PO PRN (18:34)
[2020-01-09] MEDS ORDERED: ACETAMINOPHEN 325 MG TAB PO PRN (18:34)
--- NOTE | 2020-01-09 19:43 | XRay Report ---
KUB HISTORY: Acute generalized abdominal pain with irritable bowel syndrome abd distension, IBS, hx cons tipation COMPARISON: CT abdomen and pelvis 06/15/2015, CTA of the chest 01/09/2020 FINDINGS: The bowel gas pattern is non-obstructive. Mild gaseous distention of the stomach. There is no organomegaly. Contrast within the urinary bladder from recent CTA of the chest. Mild retained cont rast noted within the bilateral renal collecting systems. No definite renal calculi. No ureteral calc alexei. No pneumoperitoneum or pneumatosis. Degenerative changes are noted involving the lower lumbar sp ine. No fracture. IMPRESSION: Nonobstructive bowel gas pattern. ACT 112: Negative or not required by law. The above report was generated using voice recognition software. It may contain grammatical, syntax o r spelling errors. Electronically signed by: Rafal Livingston M.D. 01/09/2020 7:42 PM
--- NOTE | 2020-01-09 19:49 | Electrocardiogram Report ---
Test Reason : Blood Pressure : / mmHG Vent. Rate : 070 BPM Atrial Rate : 070 BPM P-R Int : 152 ms QRS Dur : 078 ms QT Int : 396 ms P-R-T Axes : 051 059 055 degrees QTc Int : 427 ms Normal sinus rhythm Normal ECG No previous ECGs available Confirmed by Jorge Luis Hopkins ([id number]) on 01/09/2020 7:48:42 PM Referred By: Confirmed By:Max Hopkins
[2020-01-09] MEDS ORDERED: ATORVASTATIN 20 MG TAB PO SCH (21:00)
[2020-01-09] MEDS: SUCRALFATE 1 GM/10 ML UDC PO SCH (21:40)
[2020-01-09] MEDS: PANTOprazole 40 MG TAB PO SCH (21:41)
[2020-01-09] MEDS: lamoTRIgine 100 MG TAB PO SCH (21:42)
[2020-01-10 04:06] LABS: Hematocrit (blood only) 36.7 % (37-47); Hemoglobin 12.6 g/dL (12.0-16.0); Mean Corpuscular Hemoglobin 31.2 pg (25-34); Mean Corpuscular Hgb Conc 34.3 g/dL (32-36); Mean Corpuscular Volume 90.8 fL (80-100); Mean Platelet Volume 10.6 fL (7.4-10.4); Platelet Count 299 K/uL (130-400); RDW Coefficient of Variation 12.4 % (11.5-14.5); RDW Standard Deviation 41.2 fL (36.4-46.3); Red Blood Count 4.04 M/uL (4.2-5.4); White Blood Count 8.06 K/uL (4.8-10.8)
[2020-01-10 04:27] LABS: Alanine Aminotransferase 26 U/L (12-78); Albumin Level 3.6 gm/dl (3.4-5.0); Aspartate Aminotransferase 15 U/L (15-37); BUN Creatinine Ratio 17.9 (10-20); Blood Urea Nitrogen 17 mg/dl (7-18); Calcium 8.9 mg/dl (8.5-10.1); Carbon Dioxide 24 mmol/L (21-32); Chloride 111 mmol/L (98-107); Creatinine Clr Calc Pharmacy 47.1 ml/min; Est GFR (African American) 74.8; Est GFR (Non-African American) 64.6; Glucose 109 mg/dl (70-99); Potassium 3.7 mmol/L (3.5-5.1); Sodium 145 mmol/L (136-145)
[2020-01-10 04:31] LABS: Albumin Globulin Ratio 1.1 (0.9-2); Alkaline Phosphatase 89 U/L (45-117); Bilirubin,Total 0.3 mg/dl (0.2-1); Globulin 3.3 gm/dl (2.5-4.0); Total Protein 6.9 gm/dl (6.4-8.2); Troponin I < 0.015 ng/ml (0-0.045)
[2020-01-10 06:08] LABS: Estimated Average Glucose 111 mg/dl; Hemoglobin A1C 5.5 % (4.5-5.6)
[2020-01-10 07:34] VITALS: PULSE 59; TEMP 98.2; O2SAT 95
[2020-01-10 07:55] LABS: Chol HDL Ratio 6; Cholesterol 247 mg/dl (0-200); HDL Cholesterol 40 mg/dl; Triglycerides 490 mg/dl (0-150)
[2020-01-10] MEDS ORDERED: ziprasidone HCL 80 MG CAP PO SCH (08:00)
[2020-01-10] MEDS: SUCRALFATE 1 GM/10 ML UDC PO SCH (08:38)
[2020-01-10] MEDS: lamoTRIgine 100 MG TAB PO SCH (08:38)
[2020-01-10] MEDS: PANTOprazole 40 MG TAB PO SCH (08:38)
[2020-01-10] MEDS ORDERED: lisinopriL 10 MG TAB PO SCH (09:00)
[2020-01-10] MEDS ORDERED: METOPROLOL SUCC 25MG EXT REL TAB PO SCH (09:00)
[2020-01-10] MEDS ORDERED: PARoxetine HCL 10 MG TAB PO SCH (09:00)
[2020-01-10] MEDS ORDERED: PANTOprazole 40 MG TAB PO SCH (09:00)
--- OUTSIDE RECORDS SUMMARY | 2020-01-10 11:43 | External Medical Summary | Continuity of Care Document ---
:1955 Author Name Glenn Haddad, Provider Address Unavailable Unavailable , Care Team Providers Name Role Phone Casper Pandey DO Unavailable [email or web address] PCP, UNKNOWN Unavailable Unavailable Problems Active medical history not documented Allergies and Adverse Reactions Allergy history not documented Medications Medications not documented Procedures Procedures not documented Immunizations Immunizations not documented Plan of Treatment Planned Observations Planned Goals not documented Results No Known Results Results not documented
--- NOTE | 2020-01-10 11:48 | Discharge Summary ---
Date of Service January 10, 2020 Admission HPI Per Admitting Provider This is a 64 yo F, who goes by "Hazel", with PMHx of HTN, HLD, PTSD, bipolar disorder, MDD, ANIRUDH, who presents with chest pain which has been waxing and waning over the last 2 weeks. Patient reports that she feels it substernally and she describes it more as a pressure, and feels it through to her back, denies any radiation up into the jaw or into her arms. She denies any palpitations or flutter, lightheadedness or dizziness. She reports frontal headaches and associated elevated blood pressure. Here in the ER the patient is watching her blood pressure readings and then reports her headaches seem to occur at the exact same time. Last Sunday, she resumed metoprolol succinate 12.5 mg QAM but had not been taking for several months, and still is reporting elevated BP at home. Along with the headaches she admits to increase in blurred vision as well as diplopia. She cannot confirm if this is a brand-new problem, as she has used glasses for many years and was planning on getting a follow-up appointment for changes in vision soon. She denies any changes in smell or taste. Patient has associated nausea with headaches and chest pressure however no vomiting. History of IBS with intermittent constipation, reports her last bowel movement was today but takes routine stool softeners/stimulant laxatives on a daily basis. She reports eating very clean but then proceeds to tell me that she will eat toast/bagels/pasta daily. She denies alcohol use. Denies smoking history. She feels that she has been under more stress recently, "I am grieving more after already going through the 4 stages of grief, because of been home by myself, just walking the dog and sitting alone," reports her anxiety is worsened and that she is in a depressed phase of her bipolar disorder. 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 Principal Diagnosis Chest pain, noncardiac Gastroesophageal reflux Hypertension Anxiety Bipolar disorder Discharge Exam Upon examination this morning, the patient is alert and oriented. She is lying in bed. No acute distress. She is conversational. HEENT: Unremarkable. Neck is supple. There is no thyromegaly appreciated. Heart: Regular rate and rhythm. Lungs: Clear. Nonlabored respirations. Abdomen: Soft and nontender. Bowel sounds are auscultated and are normoactive Extremities: No edema. No calf tenderness. Discharge Data Allergies Allergy/AdvReac Type Severity Reaction Status Date / Time No Known Allergies Allergy Unverified 01/09/20 16:14 Consultations 01/09/20 16:31 ED Decision to Admit Stat 01/09/20 18:34 Consult Case Management - Discharge Planning Routine Ordered Studies 01/09/20 14:26 CT head/brain wo con Stat 01/09/20 14:39 CT angio chest PE protocol Stat Hospital Course (1) GERD (gastroesophageal reflux disease): The patient's Protonix was increased to twice daily and she was also medicated with Carafate with improvement. The patient tells me she may have had an EGD 2 or 3 years ago was diagnosed with gastritis. She also describes some degree of dysphagia (foods will sometimes feel as if they are getting stuck). Discussed that the best course of treatment for this would be to increase her reflux regimen and follow-up with her primary care provider; if she fails to have improvement on the twice daily proton pump inhibitor could consider EGD to evaluate for stricture. We did discuss some diet modifications that may help her in the meantime both for dysphasia as well as gastroesophageal reflux. She did admit to having increased amounts of tomato sauce recently as well as other spicy foods which may have flared her reflux. (2) Hypertension: Added lisinopril 10 mg p.o. daily. We will continue her metoprolol 12.5 mg extended release. On this dose her heart rate was running in the mid 50s so do not think she would tolerate an increased dose of beta-kaylie. Discussed parameters for blood pressure. We will have her follow-up with her primary care physician in 1 to 2 weeks for reassessment and titration of the lisinopril if needed. (3) ANIRUDH (generalized anxiety disorder): This may contribute to her blood pressures; continued home medications without change (4) Bipolar 1 disorder, depressed, partial remission: Continued home medications without change Total Time Total Time Spent Total Time Spent (In Minutes): 45 Discharge Plan Discharge Items Patient Disposition: Home - Self-Care Reason For Visit: CHEST PAIN Discharge Diagnosis: Esophageal reflux Hypertension Condition on Discharge: Good Activity: Resume your previous activity Lifting: Gradually increase as tolerated Bathing: No limitations Sexual Activity: When tolerated Exercise/Sports: Gradually increase as tolerated Driving/Machine Use: No limitations Weightbearing: Full weightbearing Non-emergency contact: Primary Care Provider Call non-emergency contact if: you have any medication questions, your symptoms worsen, your pain is not controlled, your pain is worsening, your pain is unusual for you, your pain is concerning for you, you have a fever and your temperature is above 101 Follow-up/Referrals: Verena Strong PA-C [Primary Care Provider] - Diet: Heart Healthy Addtl Attending Provider Instructions: Follow-up with primary care provider in 1 to 2 weeks. Pending Studies at Discharge: No Stand-Alone Forms: My [employer], Smoking Cessation Medications and DC Order Prescriptions: New pantoprazole 40 mg Tablet,Delayed Release (Dr/Ec) 40 mg PO BID 30 Days Qty: 60 RF: 0 lisinopril 10 mg Tablet 10 mg PO QAM 30 Days Qty: 30 RF: 1 Continued ziprasidone HCl [Geodon] 80 mg Capsule 80 mg PO QAM RF: 0 paroxetine HCl [Paxil] 10 mg tablet 10 mg PO QAM RF: 0 ziprasidone HCl [Geodon] 40 mg Capsule 40 mg PO HS RF: 0 diazepam [Valium] 10 mg tablet 10 mg PO BID PRN (Reason: Anxiety) RF: 0 lamotrigine [Lamictal] 100 mg tablet 100 mg PO BID RF: 0 atorvastatin [Lipitor] 20 mg Tablet 20 mg PO HS RF: 0 metoprolol succinate 25 mg tablet extended release 24 hr 12.5 mg PO QAM RF: 0 Discontinued pantoprazole [Protonix] 40 mg Tablet,Delayed Release (Dr/Ec) 40 mg PO QAM RF: 0 Discharge Orders: Discharge Order (Routine); Ordered 01/10/20 Ordered By: Mason Yip/Other Patient Handouts: Hypertension Control, What Is High Blood Pressure, Foods Heart Healthy Admission Data Admit Date/Time: 01/09/20 16:44 Attending Provider: Mason Gan Admit Provider: Fatou Baxter Primary Care Provider: Verena Strong Other Providers: Sher Chow Supervising Physician Co-Signing Physician Notes Attending Admit Note & Attestation: Pt seen/examined, chart reviewed, admit care plan d/w ARTIE Baxter. I agree w/ the pardo components of her documentation. 64yo female with history of bipolar disorder, anxiety, PTSD, and GERD who presents with multiple complaints. 1 - chest tightness - usually wakes her from sleep; not exertional; no cough, no dyspnea; present for 2+ weeks or longer 2 - headaches - "like a vice around my head" - for months (dating to October around COVID outbreak) 3 - abdominal bloating for weeks 4 - worsening anxiety 5 - reflux no h/o asthma or lung disease no weight loss; good appetite PMH, PSH, allergies, meds, sochx, famhx - reviewed mother had pancreatic ca VSS, BPs mildly high gen - pleasant; mildly anxious; NAD neck - no JVD heart - RRR, s1, s2, no murmur lungs - CTA b/l abd - mild distension but NT; no HSM ext - no edema vascular - radial pulses 2+ b/l EKG - NSR, no ST changes trop negative labs acceptable CTA chest - minimal RUL infiltrate A/P: 1. chest tightness - atypical for ischemia - work-up thus far negative; serial trops; telemetry; echo in am. Check lipids am. If rest of w/u is negative consider outpatient stress test. 2. headaches - check sed rate/crp in am as screen for temporal arteritis but doubt. sound like tension headaches from anxiety. 3. abd bloating - consider outpatient CT abd/pelvis given family h/o pancreatic cancer. Start with KUB x-ray - r/o fecal stasis, etc. 4. reflux - may be causing #1 - increase PPI to BID; add carafate. 5. RUL infiltrate - uncertain etiology or significance - could this be as piration from reflux disease? no cough, fever etc to suggest active infection. would not use abx at this time. observation status Sher Chow MD
[2020-01-10 12:26] VITALS: BP 156/96
== END 2020-01-10 12:45 | disposition home or self-care (01) ==
LOC: MERGE 14:07 → 2N 14:07 → ED 14:07 → SUATTDRO 16:44 → 2N 18:09